=== PATIENT | male | born 1990 ===

== ENCOUNTER 2018-01-29 07:30 | Emergency (ER) | payer OTHER ==
[2018-01-29 07:35] VITALS: BMI 32.3
[2018-01-29 07:37] VITALS: PULSE 97; RESP 17; TEMP 98.5; O2SAT 99
--- NOTE | 2018-01-29 08:08 | ED PDOC ---
HPI: General Adult Time Seen by Provider: 01/29/18 07:43 Chief Complaint (Nursing): Abnormal Skin Integrity Chief Complaint (Provider): Abnormal Skin Integrity History Per: Patient History/Exam Limitations: no limitations Onset/Duration Of Symptoms: Other ("months") Current Symptoms Are (Timing): Still Present Additional Complaint(s): 27 year old male, with a past medical history of diabetes and hypertension, presenting for evaluation of abnormal skin sensation ongoing for "months". Patient states that he constantly feels "stuff crawling on me." Patient states he saw a Funeral Director And Embalmer who told patient "it's all in my mind." Patient reports changing apartments and using all new furniture and clothes but the sensation remained. Patient also reports feeling "webbing" on his feet and is complaining of a rash to his bilateral feet. Patient states he recently moved to the area and has not seen a PMD for months. Patient reports non-compliance with his Metformin and unknown anti-hypertensive medication. Patient otherwise denies any fever, chills, or difficulty breathing. PMD: None Past Medical History Reviewed: Historical Data, Nursing Documentation, Vital Signs Vital Signs: Last Vital Signs Temp 98.5 F 01/29/18 07:34 Pulse 97 H 01/29/18 07:34 Resp 17 01/29/18 07:34 BP 146/98 H 01/29/18 07:34 Pulse Ox 99 01/29/18 08:15 - Medical History PMH: Diabetes, HTN Denies: Chronic Kidney Disease - Surgical History Surgical History: Appendectomy - Family History Family History: States: Unknown Family Hx - Living Arrangements Living Arrangements: Alone - Immunization History Hx Tetanus Toxoid Vaccination: No Hx Influenza Vaccination: No Hx Pneumococcal Vaccination: No - Home Medications Home Medications: Ambulatory Orders Medication Instructions Recorded Ketoconazole 30 gm TP BID #1 tube 01/29/18 Ketoconazole [Nizoral] 1 appl TP Q3D #1 bottle 01/29/18 metFORMIN [glucOPHAGE] 1 tab PO BID 01/29/18 metFORMIN [glucOPHAGE] 500 mg PO BID #60 tab 01/29/18 - Allergies Allergies/Adverse Reactions: Allergies Allergy/AdvReac Type Severity Reaction Status Date / Time No Known Allergies Allergy Verified 01/29/18 07:50 Review of Systems ROS Statement: Except As Marked, All Systems Reviewed And Found Negative Constitutional: Negative for: Fever, Chills Respiratory: Negative for: Shortness of Breath Skin: Positive for: Rash (bilateral feet), Other (abnormal skin sensation) Physical Exam - Reviewed Nursing Documentation Reviewed: Yes Vital Signs Reviewed: Yes - Physical Exam Appears: Positive for: Non-toxic, No Acute Distress Skin: Positive for: Normal Color, Warm, Dry. Negative for: Diaphoresis, Pallor, Rash, Jaundice, Mottled, Cyanosis Extremity: Positive for: Other (erythema on bilateral feet in moccasin distribution with some hyperkeratosis and mild swelling consistent with fungal infection) Neurologic/Psych: Positive for: Alert, Oriented - ECG O2 Sat by Pulse Oximetry: 99 Medical Decision Making Medical Decision Makin Plan: Upon provider reevaluation patient is feeling better, is medically stable, and requires no further treatment in the ED at this time. Patient will be discharged with Rx for Metformin and Ketoconazole. Counseling was provided and all questions were answered regarding diagnosis and need for follow up with [facility]. There is agreement to discharge plan. Return if symptoms persist or worsen. Scribe Attestation: Documented by Duong Mitchell, acting as a scribe for Valentina Mccollum MD. Provider Scribe Attestation: All medical record entries made by the Scribe were at my direction and personally dictated by me. I have reviewed the chart and agree that the record accurately reflects my personal performance of the history, physical exam, medical decision making, and the department course for this patient. I have also personally directed, reviewed, and agree with the discharge instructions and disposition. Disposition - Clinical Impression Clinical Impression: Tinea - Patient ED Disposition Is Patient to be Admitted: No Counseled Patient/Family Regarding: Diagnosis, Need For Followup, Rx Given - Disposition Referrals: [facility] [Outside] [facility] [Outside] Disposition: Routine/Home Disposition Time: 08:08 Condition: STABLE Prescriptions: Ketoconazole [Nizoral] 1 appl TP Q3D #1 bottle Ketoconazole 30 gm TP BID #1 tube metFORMIN [glucOPHAGE] 500 mg PO BID #60 tab Instructions: Ringworm, Athlete's Foot, and Jock Itch Forms: [facility] (Monegasque) - POA Present On Arrival: None
[2018-01-29 08:21] VITALS: BP 141/88
== END 2018-01-29 08:21 | disposition home or self-care (01) ==
LOC: H.ER 07:30
DX: B35.0 Tinea barbae and tinea capitis (principal)

== ENCOUNTER 2018-02-06 23:28 | Emergency (ER) | payer SELFPAY ==
[2018-02-06 23:28] VITALS: BMI 32.3
[2018-02-06 23:47] VITALS: TEMP 98.3; O2SAT 98
--- NOTE | 2018-02-07 02:28 | ED PDOC ---
HPI: General Adult Time Seen by Provider: 02/07/18 01:37 Chief Complaint (Nursing): Abnormal Skin Integrity Chief Complaint (Provider): head pressure History Per: Patient History/Exam Limitations: no limitations Onset/Duration Of Symptoms: Days (months), Waxing/Waning Additional Complaint(s): 27 y/o male presents for evaluation of intermittent head pressure x 4 months. States at times he feels his forehead is "swollen". Patient also reports a feeling of "bugs crawling" on his skin, same amount of time; states he was evaluated by a Vice President Investor Relations and advised to see a psychiatrist. Patient states he been seen in the ED multiple times for same and always has normal work up. 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 Denies fever, dizziness, nausea/vomiting, vision changes, extremity numbness/weakness, chest pain, shortness of breath, known allergen. Past Medical History Reviewed: Historical Data, Nursing Documentation, Vital Signs Vital Signs: Last Vital Signs Temp 98.3 F 02/06/18 23:41 Pulse 110 H 02/06/18 23:41 Resp 17 02/06/18 23:41 BP 174/97 H 02/06/18 23:41 Pulse Ox 98 02/06/18 23:41 - Medical History PMH: Diabetes, HTN Denies: Chronic Kidney Disease - Surgical History Surgical History: Appendectomy - Family History Family History: States: Unknown Family Hx - Immunization History Hx Tetanus Toxoid Vaccination: No Hx Influenza Vaccination: No Hx Pneumococcal Vaccination: No - Home Medications Home Medications: Ambulatory Orders Medication Instructions Recorded Ketoconazole 30 gm TP BID #1 tube 01/29/18 Ketoconazole [Nizoral] 1 appl TP Q3D #1 bottle 01/29/18 metFORMIN [glucOPHAGE] 1 tab PO BID 01/29/18 metFORMIN [glucOPHAGE] 500 mg PO BID #60 tab 01/29/18 Terbinafine HCl [Lamisil At] 1 gm TP BID #2 cream..g. 02/01/18 Permethrin 5% [Permethrin] 1 applic TP ONCE #1 tube 02/07/18 - Allergies Allergies/Adverse Reactions: Allergies Allergy/AdvReac Type Severity Reaction Status Date / Time No Known Allergies Allergy Verified 02/06/18 23:47 Review of Systems ROS Statement: Except As Marked, All Systems Reviewed And Found Negative Neurological: Positive for: Headache Physical Exam - Reviewed Nursing Documentation Reviewed: Yes Vital Signs Reviewed: Yes - Physical Exam Appears: Positive for: Well, Non-toxic, Uncomfortable (anxious) Head Exam: Positive for: ATRAUMATIC, NORMAL INSPECTION, NORMOCEPHALIC Skin: Positive for: Rash (intermittent papular lesions, excoriations, scabs, scattered throughout body, hyperpigmented lesions noted to face; no vesicles, sandpaper appearance, drainage noted) Eye Exam: Positive for: Normal appearance, EOMI, PERRL ENT: Positive for: Normal ENT Inspection Cardiovascular/Chest: Positive for: Regular Rate, Rhythm Respiratory: Positive for: Normal Breath Sounds Gastrointestinal/Abdominal: Positive for: Normal Exam Back: Positive for: Normal Inspection Extremity: Positive for: Normal ROM Neurologic/Psych: Positive for: Alert, Oriented (x3) - ECG O2 Sat by Pulse Oximetry: 98 - Progress ED Course And Treament: labs reviewed from 02/01/18, WNL; will check accucheck and CT head USArad impression: normal unenhanced CT scan of the brain Patient requesting cream that could treat "bugs under his skin" Permethrin given Advised follow up PMD/Dermatology Return precautions given Disposition - Clinical Impression Clinical Impression: Rash, Headache - Patient ED Disposition Is Patient to be Admitted: No Counseled Patient/Family Regarding: Studies Performed, Diagnosis, Need For Followup, Rx Given - Disposition Disposition: Routine/Home Disposition Time: 04:04 Condition: IMPROVED Prescriptions: Permethrin 5% [Permethrin] 1 applic TP ONCE #1 tube Instructions: Headache, Adult, Skin Rash
[2018-02-07 04:04] VITALS: BP 151/94; PULSE 88; RESP 18
--- NOTE | 2018-02-07 09:03 | CT ---
Date of service: 02/07/2018 PROCEDURE: CT HEAD WITHOUT CONTRAST. HISTORY: head pressure COMPARISON: None available. TECHNIQUE: Axial computed tomography images were obtained through the head/brain without intravenous contrast. Radiation dose: Total exam DLP = 817.73 mGy-cm. This CT exam was performed using one or more of the following dose reduction techniques: Automated exposure control, adjustment of the mA and/or kV according to patient size, and/or use of iterative reconstruction technique. FINDINGS: HEMORRHAGE: No intracranial hemorrhage. BRAIN: No mass effect or edema. No atrophy or chronic microvascular ischemic changes. VENTRICLES: Unremarkable. No hydrocephalus. CALVARIUM: Unremarkable. PARANASAL SINUSES: Unremarkable as visualized. No significant inflammatory changes. MASTOID AIR CELLS: Unremarkable as visualized. No inflammatory changes. OTHER FINDINGS: None. IMPRESSION: Normal CT of the Head. No intracranial mass, hemorrhage or evidence of acute infarct. The preliminary findings for this examination were reported by [facility] at 3:29 a.m. on 02/07/2018. There is concurrence of this report with the preliminary findings.
== END 2018-02-07 04:19 | disposition home or self-care (01) ==
LOC: H.ER 23:28
DX: R51 Headache (principal); R21 Rash and other nonspecific skin eruption; E11.9 Type 2 diabetes mellitus without complications; Z79.84 Long term (current) use of oral hypoglycemic drugs; I10 Essential (primary) hypertension

== ENCOUNTER 2018-05-20 03:19 | Emergency (ER) | payer SELFPAY ==
[2018-05-20 03:19] VITALS: BMI 32.3
[2018-05-20 03:49] VITALS: TEMP 98.2
[2018-05-20 04:03] VITALS: RESP 18
--- NOTE | 2018-05-20 04:38 | ED PDOC ---
HPI: Skin/Bite Injury Time Seen by Provider: 05/20/18 03:48 Chief Complaint (Nursing): Abnormal Skin Integrity History Per: Patient History/Exam Limitations: no limitations Onset/Duration Of Symptoms: Days Additional History Per: Patient Additional Complaint(s): Hx of DM, HTN, schizophrenia presenting with itching to skin, states he has seen bugs "jumping off" him for the past week, states itchy scalp and feet. Denies drugs or alcohol use. Past Medical History Reviewed: Historical Data, Nursing Documentation, Vital Signs Vital Signs: Last Vital Signs Temp 98.2 F 05/20/18 03:45 Pulse 104 H 05/20/18 04:03 Resp 18 05/20/18 04:03 BP 145/98 H 05/20/18 03:45 Pulse Ox 98 05/20/18 04:03 - Medical History PMH: Diabetes, HTN Denies: Chronic Kidney Disease - Surgical History Surgical History: Appendectomy - Family History Family History: States: Unknown Family Hx - Immunization History Hx Tetanus Toxoid Vaccination: No Hx Influenza Vaccination: No Hx Pneumococcal Vaccination: No - Home Medications Home Medications: Ambulatory Orders Medication Instructions Recorded Ketoconazole 30 gm TP BID #1 tube 01/29/18 Ketoconazole [Nizoral] 1 appl TP Q3D #1 bottle 01/29/18 metFORMIN [glucOPHAGE] 1 tab PO BID 01/29/18 metFORMIN [glucOPHAGE] 500 mg PO BID #60 tab 01/29/18 Terbinafine HCl [Lamisil At] 1 gm TP BID #2 cream..g. 02/01/18 Permethrin 5% [Permethrin] 1 applic TP ONCE #1 tube 02/07/18 DiphenhydrAMINE [Benadryl] 25 mg PO QID #14 cap 04/03/18 Mupirocin 2% Oint UD [Bactroban 1 applic EXT BID #60 g 04/03/18 Ointment] Diphenhydramine HCl/Zinc Acet 28.3 gm TP DAILY #1 cream..g. 05/20/18 [Benadryl Itch Stopping Crm] - Allergies Allergies/Adverse Reactions: Allergies Allergy/AdvReac Type Severity Reaction Status Date / Time No Known Allergies Allergy Verified 05/14/18 02:33 Review of Systems ROS Statement: Except As Marked, All Systems Reviewed And Found Negative Skin: Positive for: Other (Pruritis) Physical Exam - Reviewed Nursing Documentation Reviewed: Yes Vital Signs Reviewed: Yes - Physical Exam Appears: Positive for: Well, Non-toxic, No Acute Distress Head Exam: Positive for: ATRAUMATIC, NORMAL INSPECTION, NORMOCEPHALIC Skin: Positive for: Normal Color (No evidence of infestation), Warm. Negative for: Diaphoresis, Pallor, Rash Eye Exam: Positive for: EOMI, Normal appearance, PERRL ENT: Positive for: Normal ENT Inspection Neck: Positive for: Normal, Painless ROM Cardiovascular/Chest: Positive for: Regular Rate, Rhythm Respiratory: Positive for: CNT, Normal Breath Sounds Gastrointestinal/Abdominal: Positive for: Normal Exam, Soft Back: Positive for: Normal Inspection Extremity: Positive for: Normal ROM Neurologic/Psych: Positive for: Alert, Oriented - ECG O2 Sat by Pulse Oximetry: 98 Medical Decision Making Medical Decision Making: Patient presenting with pruritis No infestation seen Encouraged patient to followup as outpatient Recommended symptomatic care Disposition - Clinical Impression Clinical Impression: Formication - Disposition Referrals: [facility] [Outside] Disposition: Routine/Home Disposition Time: 03:45 Condition: STABLE Prescriptions: Diphenhydramine HCl/Zinc Acet [Benadryl Itch Stopping Crm] 28.3 gm TP DAILY #1 cream..g. Instructions: Itchy Skin Forms: [facility] (Wallisian)
[2018-05-20 04:58] VITALS: BP 148/93; PULSE 102; O2SAT 99
== END 2018-05-20 05:07 | disposition home or self-care (01) ==
LOC: H.ER 03:19
DX: R20.2 Paresthesia of skin (principal)